=== PATIENT | male | born 1960 | race Caucasian/White ===

== ENCOUNTER → 2024-12-17 13:50 | Outpatient (REF) | payer BC, SELFPAY | LOC: PAVMRI 13:50 | PROVIDERS: ATTENDING PHYSICIAN Electrodiagnostic Medicine; FAMILY PHYSICIAN Internal Medicine | DX: G35 Multiple sclerosis (principal); D32.9 Benign neoplasm of meninges, unspecified | CPT/HCPCS: 70553; A9575 ==

== ENCOUNTER → 2025-11-30 09:20 | Outpatient (REF) | payer BC, SELFPAY | LOC: HWRAD 09:20 | PROVIDERS: ATTENDING PHYSICIAN Internal Medicine | DX: R74.8 Abnormal levels of other serum enzymes (principal) | CPT/HCPCS: 76700 ==